=== PATIENT | male | born 1965 | race Caucasian/White ===

== ENCOUNTER 2016-10-12 21:12 | Emergency (ER) | payer OTHER | END 2016-10-13 | disposition home or self-care (01) | LOC: ER1 21:12 | DX: S39.012A Strain of muscle, fascia and tendon of lower back, initial encounter (principal); I10 Essential (primary) hypertension; F17.210 Nicotine dependence, cigarettes, uncomplicated; W18.30XA Fall on same level, unspecified, initial encounter; Y92.009 Unspecified place in unspecified non-institutional (private) residence as the place of occurrence of the external cause; Z79.899 Other long term (current) drug therapy | CPT/HCPCS: 72128; 72131; 96372; 99283; J2270 ==

== ENCOUNTER → 2021-06-28 | Outpatient (CLI) | payer MEDICARE, OTHER ==
[~2021-06-28] MED LIST: AMLODIPINE BESY10 MG PO; ARNUITY ELLIPTA INH; CLARITIN 10MG T10 MG PO; ELIQUIS2.5 MG PO; FLEXERIL 10 MG10 MG PO; HYDROCHLOROTHIA25 MG PO; IBUPROFEN600 MG PO; LORCET PLUS 7.1 EACH PO; LORTAB 7.5-3251 EACH PO; PERCOCET 10-321 EACH PO; PROTONIX40 MG PO; VENTOLIN/PROVE0.5 ML INH; XANAX0.5 MG PO
== END ==
LOC: KOH-I 10:38
DX: F17.210 Nicotine dependence, cigarettes, uncomplicated (principal); E27.9 Disorder of adrenal gland, unspecified
CPT/HCPCS: 71271

== ENCOUNTER → 2021-12-27 | Outpatient (CLI) | payer MEDICARE, OTHER | LOC: HEART 5 13:24 → EDSTATUS 13:52 | DX: J44.9 Chronic obstructive pulmonary disease, unspecified (principal) | CPT/HCPCS: 94060; 94729 ==